=== PATIENT | female | born 1995 | race Caucasian/White ===

== ENCOUNTER 2017-10-12 11:10 | Emergency (ER) | payer MEDICAID, OTHER ==
[2017-10-13 04:12] LABS: ABSOLUTE LYMPHOCYTES (AUTO) 1.4 10^3/uL (0.5-4.7); ABSOLUTE MONOCYTES (AUTO) 0.6 10^3/uL (0.1-1.4); ABSOLUTE NEUT (AUTO) 4.9 10^3/uL (1.7-8.2); BASOPHILS % (AUTO) 0.4 % (0-2); EOSINOPHILS % (AUTO) 0.2 % (0-6); HEMATOCRIT 43.7 % (36.0-47.0); HEMOGLOBIN 14.4 g/dL (12.0-15.5); LYMPHOCYTES % (AUTO) 20.7 % (13-45); MEAN CORPUSCULAR HEMOGLOBIN 27.5 pg (27.0-33.4); MEAN CORPUSCULAR VOLUME 83 fl (80-97); MONOCYTES % (AUTO) 8.4 % (3-13); PLATELET COUNT 260 10^3/uL (150-450); RED BLOOD COUNT 5.24 10^6/uL (3.72-5.28); RED CELL DISTRIBUTION WIDTH 14.2 % (11.5-14.0); SEGMENTED NEUTROPHILS % (AUTO) 70.3 % (42-78); TOTAL CELLS COUNTED % (AUTO) 100 %
[2017-10-13 04:13] LABS: AMORPHOUS SEDIMENT,URINE TRACE /HPF; APPEARANCE,URINE CLOUDY; BILIRUBIN,URINE NEGATIVE (NEGATIVE); COLOR,URINE YELLOW; GLUCOSE, URINE NEGATIVE (NEGATIVE); KETONES,URINE 80 mg/dL (NEGATIVE); LEUKOCYTE ESTERASE,URINE NEGATIVE (NEGATIVE); NITRITE,URINE NEGATIVE (NEGATIVE); PROTEIN,URINE 100 mg/dL (NEGATIVE); URINE SPECIFIC GRAVITY 1.026
--- NOTE | 2017-10-13 09:56 | RADIOLOGY REPORT (SQ) ---
EXAM DESCRIPTION: U/S ABDOMEN LIMITED W/O DOP COMPLETED DATE/TIME: 10/13/2017 12:53 am REASON FOR STUDY: RUQ PAIN COMPARISON: None. TECHNIQUE: Dynamic and static grayscale images acquired of the abdomen and recorded on PACS. Additio nal selected color Doppler and spectral images recorded. LIMITATIONS: None. FINDINGS: PANCREAS: No masses. Visualized pancreatic duct normal caliber. LIVER: No masses. Echotexture normal. LIVER VASCULATURE: Normal directional flow of the main portal vein and hepatic veins. GALLBLADDER: Echodensity along the dependent wall of gallbladder consistent with gallstones. No thic kening of gallbladder wall. No pericholecystic fluid collection. ULTRASOUND-DETECTED LOVE'S SIGN: Negative. INTRAHEPATIC DUCTS AND COMMON DUCT: CBD and intrahepatic ducts normal caliber. No filling defects. INFERIOR VENA CAVA: Normal flow. AORTA: No aneurysm. RIGHT KIDNEY: Normal size. Normal echogenicity. No solid or suspicious masses. No hydronephrosis. No calcifications. PERITONEAL AND RIGHT PLEURAL SPACE: No ascites or effusions. OTHER: No other significant finding. IMPRESSION: GALLSTONES. OTHERWISE NORMAL RIGHT UPPER QUADRANT ULTRASOUND. TECHNICAL DOCUMENTATION: JOB ID: [id number] [employer]- All Rights Reserved
[2017-10-13 12:13] LABS: CALCIUM 9.9 mg/dL (8.4-10.2); GLUCOSE 79 mg/dL (75-110)
[2017-10-13 12:14] LABS: ALBUMIN 4.9 g/dL (3.5-5.0); ANION GAP 16 (5-19); BLOOD UREA NITROGEN 14 mg/dL (7-20); CARBON DIOXIDE 26 mmol/L (22-30); CHLORIDE 102 mmol/L (98-107); POTASSIUM 3.9 mmol/L (3.6-5.0); SODIUM 143.8 mmol/L (137-145)
[2017-10-13 12:15] LABS: ALANINE AMINOTRANSFERASE 21 U/L (9-52); ALKALINE PHOSPHATASE 116 U/L (38-126); ASPARTATE AMINO TRANSFERASE 21 U/L (14-36); BILIRUBIN,DIRECT 0.3 mg/dL (0.0-0.4); BILIRUBIN,TOTAL 0.5 mg/dL (0.2-1.3)
[2017-10-13 12:16] LABS: TOTAL PROTEIN 8.1 g/dL (6.3-8.2)
== END 2017-10-12 15:25 | disposition home or self-care (01) ==
LOC: ER 11:10
DX: K80.20 Calculus of gallbladder without cholecystitis without obstruction (principal); N76.0 Acute vaginitis; B96.89 Other specified bacterial agents as the cause of diseases classified elsewhere
CPT/HCPCS: 36415; 76705; 80053; 81001; 85025; 99284

== ENCOUNTER 2018-06-10 11:50 | Emergency (ER) | payer OTHER ==
[2018-06-10 11:55] VITALS: BP 113/74
--- NOTE | 2018-06-10 13:01 | ER Document Report ---
ED General - General Chief Complaint: Abdominal Pain Stated Complaint: ABDOMINAL PAIN Time Seen by Provider: 06/10/18 12:40 TRAVEL OUTSIDE OF THE [place] IN LAST 30 DAYS: No - HPI Patient complains to provider of: Abdominal pain Notes: Patient coming in for ongoing abdominal pain nausea vomiting and diarrhea. Patient also states having early satiety. Patient states she notices that whenever she eats she will quickly have frequent bowel movements. Patient also states abdominal pain crampy with eating. Patient has a history of cholecystectomy approximately a year ago. Patient knows also that her stool is foamy since that time. Patient states she has followed up with multiple providers however has yet to follow-up with her GI specialist never has had an EGD or colonoscopy. Patient states IBS and IBD does run into her family. Patient denies any fevers or chills. Denies any trouble with urination. Patient is with her 2 children holding the youngest without difficulty upon my evaluation patient also points to the palpable area of her stomach states that she has had a mass there for quite some time that comes and goes. Patient states she has never been evaluated for this. - Related Data Allergies/Adverse Reactions: Sulfa (Sulfonamide Antibiotics) Allergy (Verified 06/10/18 11:51) Past Medical History - Social History Smoking Status: Unknown if Ever Smoked Frequency of alcohol use: None Drug Abuse: None Family History: Reviewed & Not Pertinent Patient has suicidal ideation: No Patient has homicidal ideation: No Renal/ Medical History: Denies: Hx Peritoneal Dialysis Past Surgical History: Reports: Hx Cholecystectomy, Hx Tonsillectomy - Immunizations Immunizations up to date: Yes Hx Diphtheria, Pertussis, Tetanus Vaccination: Yes Review of Systems - Review of Systems Constitutional: No symptoms reported EENT: No symptoms reported Cardiovascular: No symptoms reported Respiratory: No symptoms reported Gastrointestinal: Abdominal pain, Diarrhea, Nausea, Vomiting Genitourinary: No symptoms reported Female Genitourinary: No symptoms reported Musculoskeletal: No symptoms reported Skin: No symptoms reported Hematologic/Lymphatic: No symptoms reported Neurological/Psychological: No symptoms reported -: Yes All other systems reviewed and negative Physical Exam - Vital signs Vitals: Temp Pulse Resp BP Pulse Ox 98.1 F 100 14 113/74 100 06/10/18 11:53 06/10/18 11:53 06/10/18 11:53 06/10/18 11:53 06/10/18 11:53 Interpretation: Normal - General General appearance: Appears well, Alert - HEENT Head: Normocephalic, Atraumatic Eyes: Normal Pupils: PERRL - Respiratory Respiratory status: No respiratory distress Chest status: Nontender Breath sounds: Normal Chest palpation: Normal - Cardiovascular Rhythm: Regular Heart sounds: Normal auscultation Murmur: No - Abdominal Inspection: Normal, Other - Patient is able to find an area that she concerned about for possible mass in the mid abdomen on the right. Unable to palpate this and does seem to be very soft freely mobile and does go away during examination patient is very thin this is thought to be possible colonic spasm or stool in the colon that the mass does resolve with palpation Distension: No distension Bowel sounds: Normal Tenderness: Nontender Organomegaly: No organomegaly - Back Back: Normal, Nontender - Extremities General upper extremity: Normal inspection, Nontender, Normal color, Normal ROM , Normal temperature General lower extremity: Normal inspection, Nontender, Normal color, Normal ROM , Normal temperature, Normal weight bearing. No: Ruby's sign - Neurological Neuro grossly intact: Yes Cognition: Normal Orientation: AAOx4 [place] Coma Scale Eye Opening: Spontaneous [place] Coma Scale Verbal: Oriented [place] Coma Scale Motor: Obeys Commands [place] Coma Scale Total: 15 Speech: Normal Motor strength normal: LUE, RUE, LLE, RLE Sensory: Normal - Psychological Associated symptoms: Normal affect, Normal mood - Skin Skin Temperature: Warm Skin Moisture: Dry Skin Color: Normal Course - Re-evaluation Re-evalutation: 06/10/18 20:48 Patient's abdominal examination is benign no surgical pathology. Patient with no fevers no chills I doubt any infectious pathology at this time. Patient otherwise does look to be very healthy. I did explain to the patient her symptoms are possibly concerning for underlying IBD or IBS at this time the patient looks stable would recommend treatment with omeprazole Reglan and Bentyl for pain I also would recommend patient follow-up with her primary care for referral to the pest control operator for EGD and colonoscopy. I did give dietary recommendations as well. Patient states understanding of these recommendations agree with this plan patient will be discharged home states that she will follow-up. - Vital Signs Vital signs: Temp Pulse Resp BP Pulse Ox 98.1 F 100 14 113/74 100 06/10/18 11:53 06/10/18 11:53 06/10/18 11:53 06/10/18 11:53 06/10/18 11:53 Discharge - Discharge Clinical Impression: Early satiety Abdominal pain Qualifiers: Abdominal location: generalized Qualified Code(s): R10.84 - Generalized abdominal pain Condition: Good Disposition: HOME, SELF-CARE Instructions: Abdominal Pain ([facility]), Irritable Bowel Syndrome ([facility]), Nausea or Vomiting, Nonspecific ([facility]) Additional Instructions: Your physical exam today revealed no signs of surgical pathology causing her pain. By her history do believe he may have underlying this IBS or IBD. The diagnosis of these will require you seeing a GI specialist to more likely perform scopes and upper GI and lower GI scope. We will start treating possible underlying gastritis with a medication called omeprazole. We also help out with your stomach cramps and nausea with a medication called Bentyl Reglan for nausea. Please follow-up with your primary care physician. I would recommend Eating or using Ensure protein drinks or boost protein drinks as that they are easily digestible may help out with some your symptoms. Return to ER for any concerning issues. Prescriptions: Dicyclomine HCl [Bentyl 20 mg Tablet] 20 mg PO QID #30 tablet Metoclopramide HCl [Reglan] 5 mg PO Q6 #30 tablet Omeprazole 20 mg PO DAILY #30 capsule.dr Forms: Return to Work Referrals: NEENA MONTENEGRO FNP-C [Primary Care Provider] - Follow up as needed JOE ZAMBRANO MD [ACTIVE STAFF] - Follow up as needed ANALI LEMON MD [ACTIVE STAFF] - Follow up as needed
== END 2018-06-10 13:03 | disposition home or self-care (01) ==
LOC: ER 11:50
DX: R10.84 Generalized abdominal pain (principal); R68.81 Early satiety; R11.2 Nausea with vomiting, unspecified
CPT/HCPCS: 99284

== ENCOUNTER 2018-08-11 10:36 | Emergency (ER) | payer OTHER ==
[2018-08-11 11:04] VITALS: BP 122/75
--- NOTE | 2018-08-11 11:28 | ER Document Report ---
HPI - HPI Patient complains to provider of: Back lesion Onset: Other - Several days Pain Level: 5 Context: 23-year-old female has a lesion on her central mid thoracic back and she wants to make sure it is not an abscess or MRSA. Her daughter has something similar on her right elbow. No fever or chills. No history of MRSA. Associated Symptoms: None Exacerbated by: Denies Relieved by: Denies - ROS ROS below otherwise negative: Yes Systems Reviewed and Negative: Yes All other systems reviewed and negative - REPRODUCTIVE Reproductive: DENIES: : Past Medical History - General Information source: Patient - Social History Smoking Status: Never Smoker Lives with: Family Family History: Reviewed & Not Pertinent - Medical History Medical History: Negative Renal/ Medical History: Denies: Hx Peritoneal Dialysis Past Surgical History: Reports: Hx Cholecystectomy, Hx Tonsillectomy - Immunizations Immunizations up to date: Yes Hx Diphtheria, Pertussis, Tetanus Vaccination: Yes Vertical Provider Document - CONSTITUTIONAL Agree With Documented VS: Yes Exam Limitations: No Limitations - INFECTION CONTROL TRAVEL OUTSIDE OF THE [place] IN LAST 30 DAYS: No - MUSCULOSKELETAL/EXTREMETIES Musculoskeletal/Extremeties: RADHA, FROM - NEURO Level of Consciousness: Alert - DERM Notes: superficial healing abrasion over mid t spinous process, not infected. Course - Vital Signs Vital signs: Temp Pulse Resp BP Pulse Ox 98.5 F 87 14 122/75 95 08/11/18 11:01 08/11/18 11:01 08/11/18 11:01 08/11/18 11:01 08/11/18 11:01 Discharge - Discharge Clinical Impression: Thoracic spine abrasion Condition: Good Disposition: HOME, SELF-CARE Instructions: Abrasions ([facility]) Additional Instructions: See your doctor for any concerns Watch the area to make sure it does not become infected Bacitracin daily Forms: Parent Work Note Referrals: NEENA MONTENEGRO, YUDIC [COMMUNITY BASED STAFF] - Follow up as needed
== END 2018-08-11 12:16 | disposition home or self-care (01) ==
LOC: ER 10:36
DX: S20.419A Abrasion of unspecified back wall of thorax, initial encounter (principal); X58.XXXA Exposure to other specified factors, initial encounter
CPT/HCPCS: 99282

== ENCOUNTER 2020-05-07 23:44 | Emergency (ER) | payer SELFPAY ==
[2020-05-08 00:47] LABS: ABSOLUTE LYMPHOCYTES (AUTO) 2.2 10^3/uL (0.5-4.7); ABSOLUTE MONOCYTES (AUTO) 0.7 10^3/uL (0.1-1.4); ABSOLUTE NEUT (AUTO) 5.1 10^3/uL (1.7-8.2); BASOPHILS % (AUTO) 0.3 % (0-2); EOSINOPHILS % (AUTO) 0.6 % (0-6); HEMATOCRIT 40.8 % (36.0-47.0); HEMOGLOBIN 13.7 g/dL (12.0-15.5); LYMPHOCYTES % (AUTO) 27.4 % (13-45); MEAN CORPUSCULAR HGB CONC 33.5 g/dL (32.0-36.0); MEAN CORPUSCULAR VOLUME 87 fl (80-97); MONOCYTES % (AUTO) 8.8 % (3-13); PLATELET COUNT 228 10^3/uL (150-450); RED BLOOD COUNT 4.71 10^6/uL (3.72-5.28); RED CELL DISTRIBUTION WIDTH 13.7 % (11.5-14.0); SEGMENTED NEUTROPHILS % (AUTO) 62.9 % (42-78); TOTAL CELLS COUNTED % (AUTO) 100 %; WHITE BLOOD COUNT 8.1 10^3/uL (4.0-10.5)
[2020-05-08 01:01] LABS: ALBUMIN 4.5 g/dL (3.5-5.0); ALKALINE PHOSPHATASE 52 U/L (38-126); ANION GAP 7 (5-19); ASPARTATE AMINO TRANSFERASE 21 U/L (14-36); BILIRUBIN,TOTAL 0.6 mg/dL (0.2-1.3); BLOOD UREA NITROGEN 6 mg/dL (7-20); CALCIUM 9.6 mg/dL (8.4-10.2); CARBON DIOXIDE 27 mmol/L (22-30); CHLORIDE 104 mmol/L (98-107); GLUCOSE 93 mg/dL (75-110); POTASSIUM 4.3 mmol/L (3.6-5.0); TOTAL PROTEIN 7.6 g/dL (6.3-8.2)
[2020-05-08 02:22] LABS: AMORPHOUS SEDIMENT,URINE TRACE /HPF; APPEARANCE,URINE CLOUDY; BILIRUBIN,URINE NEGATIVE (NEGATIVE); COLOR,URINE YELLOW; GLUCOSE, URINE NEGATIVE (NEGATIVE); KETONES,URINE NEGATIVE (NEGATIVE); LEUKOCYTE ESTERASE,URINE NEGATIVE (NEGATIVE); NITRITE,URINE NEGATIVE (NEGATIVE); PROTEIN,URINE NEGATIVE (NEGATIVE); URINE SPECIFIC GRAVITY 1.011; UROBILINOGEN,URINE NEGATIVE mg/dL (<2.0)
[2020-05-08] MEDS ORDERED: NORMAL SALINE 1000 ML 1,000 ML IV ONE (04:34)
[2020-05-08] MEDS ORDERED: KETOROLAC TROMETHAMINE INJ/PF 30 MG/1 ML SDV IV ONE (04:34)
[2020-05-08] MEDS ORDERED: ONDANSETRON HCL INJ/PF 4 MG/2 ML SDV IV ONE (04:35)
--- NOTE | 2020-05-08 04:36 | ER Document Report ---
Entered by TAVON VELIZ SCRIBE 05/08/20 0428 Acting as scribe for:PETTY HEAD IV, MD ED GI/ - General Mode of Arrival: Ambulatory Information source: Patient TRAVEL OUTSIDE OF THE [place] IN LAST 30 DAYS: No - Related Data Home Medications: Omeprazole <PETTY HEAD IV - Last Filed: 05/08/20 04:36> <PARIS FUENTES - Last Filed: 05/08/20 09:59> - General Chief Complaint: Lower Abdominal Pain Stated Complaint: LOWER RIGHT ABDOMINAL PAIN Time Seen by Provider: 05/08/20 04:13 Notes: This 24 year old female patient presents to the ED today with complaints of RLQ abdominal pain that started around 1830 yesterday evening. Patient states the pain was initially dull and localized to her periumbilical region, but has now radiated to her RLQ and right lower back. Pain is now constant and sharp. She also reports associated nausea and poor appetite for the last x1.5 days, which is not uncommon for her she states. No vomiting or fever. Patient had a chol ecystectomy in November 2017. (PETTY HEAD IV) - Related Data Allergies/Adverse Reactions: Sulfa (Sulfonamide Antibiotics) Allergy (Verified 07/13/19 14:22) Past Medical History - General Information source: Patient - Social History Smoking Status: Never Smoker Cigarette use (# per day): No Chew tobacco use (# tins/day): No Smoking Education Provided: No Frequency of alcohol use: Social Drug Abuse: None Family History: Reviewed & Not Pertinent Patient has suicidal ideation: No Patient has homicidal ideation: No Past Surgical History: Reports: Hx Cholecystectomy, Hx Tonsillectomy - Immunizations Immunizations up to date: Yes Hx Diphtheria, Pertussis, Tetanus Vaccination: Yes <PETTY HEAD IV - Last Filed: 05/08/20 04:36> Review of Systems - Review of Systems Constitutional: See HPI. denies: Fever EENT: No symptoms reported Cardiovascular: No symptoms reported Respiratory: No symptoms reported Gastrointestinal: See HPI, Abdominal pain, Nausea, Poor appetite. denies: Vomiting Genitourinary: No symptoms reported Female Genitourinary: No symptoms reported Musculoskeletal: No symptoms reported Skin: No symptoms reported Hematologic/Lymphatic: No symptoms reported Neurological/Psychological: No symptoms reported -: Yes All other systems reviewed and negative <PETTY HEAD IV - Last Filed: 05/08/20 04:36> Physical Exam - Vital signs Interpretation: Normal - General General appearance: Alert In distress: None - HEENT Head: Normocephalic, Atraumatic Eyes: Normal Pupils: PERRL - Respiratory Respiratory status: No respiratory distress Chest status: Nontender Breath sounds: Normal Chest palpation: Normal - Cardiovascular Rhythm: Regular Heart sounds: Normal auscultation Murmur: No Friction rub: No Gallop: None auscultated - Abdominal Inspection: Normal Distension: No distension Bowel sounds: Normal Tenderness: McBurney's point, Rebound - mild, Other - Abdomen soft Organomegaly: No organomegaly - Back Back: Normal, Nontender - Extremities General upper extremity: Normal inspection General lower extremity: Normal inspection - Neurological Neuro grossly intact: Yes Orientation: AAOx4 [place] Coma Scale Eye Opening: Spontaneous [place] Coma Scale Verbal: Oriented [place] Coma Scale Motor: Obeys Commands [place] Coma Scale Total: 15 - Psychological Associated symptoms: Normal affect, Normal mood - Skin Skin Temperature: Warm Skin Moisture: Dry Skin Color: Normal <PETTY HEAD IV - Last Filed: 05/08/20 04:36> - Vital signs Vitals: Temp Pulse Resp BP Pulse Ox 98.4 F 80 18 113/75 100 05/08/20 00:05 05/08/20 00:05 05/08/20 00:05 05/08/20 00:05 05/08/20 00:05 Course - Laboratory Result Diagrams: 05/08/20 00:32 05/08/20 00:32 <PETYT HEAD IV - Last Filed: 05/08/20 04:36> - Laboratory Result Diagrams: 05/08/20 00:32 05/08/20 00:32 <PARIS FUENTES - Last Filed: 05/08/20 09:59> - Vital Signs Vital signs: Temp Pulse Resp BP Pulse Ox 98.4 F 73 18 120/68 100 05/08/20 06:57 05/08/20 06:57 05/08/20 06:57 05/08/20 06:57 05/08/20 06:57 - Laboratory Laboratory results interpreted by wi: 05/08/20 00:32 BUN 6 L Creatinine 0.50 L Discharge <PETTY HEAD IV - Last Filed: 05/08/20 04:36> <PARIS FUENTES - Last Filed: 05/08/20 09:59> - Discharge Clinical Impression: Right lower quadrant abdominal pain, Pelvic pain Condition: Stable Disposition: HOME, SELF-CARE Additional Instructions: Pelvic Pain There are many causes of pain in the pelvic area. The cause could be the tubes, ovaries, uterus, intestines, appendix, pelvic muscles and connective tissue, or the urinary tract. The cause of your pelvic pain is not clear. However, it seems safe to treat you outside the hospital. If the pain sounds like a temporary problem, we sometimes wait to see if it goes away. Other patients may need additional tests, such as pelvic ultrasound or cultures. Conditions may change. Call us or come back for reexamination if any problems occur, such as: (1) Pain that becomes more severe, steady, or becomes concentrated in one specific area. Also, pain that is more severe with movement or coughing. (2) Vomiting that persists or becomes more frequent. (3) Blood in the vomitus, urine, or bowel movements. Blood in the stool may have a tarry or black appearance. (4) Shaking chills or fever greater than 100 degrees. (5) The abdomen becomes more distended or swollen. (6) Bowel movements cease. (7) Heavy vaginal bleeding. Take the medications as prescribed. Take Tylenol every 4-6 hours and ibuprofen 600 mg every 8 hours for the next few days for the pelvic discomfort. Follow-up with your primary care provider if not improving. RETURN TO THE EMERGENCY ROOM IF ANY NEW OR WORSENING SYMPTOMS. Prescriptions: Doxycycline Hyclate 100 mg PO BID #20 tablet.dr Alvarez personally performed the services described in the documentation, reviewed and edited the documentation which was dictated to the scribe in my presence, and it accurately records my words and actions.
--- NOTE | 2020-05-08 07:44 | RADIOLOGY REPORT (SQ) ---
CT abdomen and pelvis with contrast on 05/08/2020 at 7:17 AM CLINICAL INDICATION: Right lower quadrant pain TECHNIQUE: Multiple axial images are obtained throughout the abdomen and pelvis following the administration of IV and oral contrast. This exam was performed according to our departmental dose-optimization program, which includes automated exposure control, adjustment of the mA and/or kV according to patient size and/or use of iterative reconstruction technique. Total DLP is 504.92 mGy*cm. COMPARISON: None FINDINGS: Abdomen: The lung bases are clear. The patient is status post cholecystectomy. The solid abdominal organs are unremarkable. There is no abdominal adenopathy. There is no free fluid or free air within the abdomen. The abdominal portion of the GI tract is unremarkable. Pelvis: Small amount of free fluid in the pelvis is likely physiologic. Pelvic organs appear unremarkable by CT. There is no pelvic adenopathy. Pelvic portion of the GI tract including the appendix is unremarkable. No bony abnormality is noted. IMPRESSION: No acute abnormality.
--- NOTE | 2020-05-08 10:04 | ER Document Report ---
Doctor's Note Notes: 05/08/20 10:02 Patient care was turned over to me at shift change. Patient was waiting for a CT scan at that time. CT scan has come back and is unremarkable, showing only physiologic pelvic free fluid. I went and spoke with the patient, she had onset yesterday evening of sharp stabbing umbilical pain which then traveled to the right lower quadrant. She states her discharge is no different than normal. Physical exam at this time shows abdomen soft, active bowel sounds, very tender in the left lower quadrant, very tender in the suprapubic region, and tender in the right lower quadrant. Physical exam is most consistent with PID. Explained this to the patient, will get a dirty catch urine for GC chlamydia, and discharged on doxycycline.
[2020-05-08 10:38] VITALS: BP 102/59
[2020-05-08 12:05] LABS: CHLAM PCR NOT DETECTED (NOT DETECT)
== END 2020-05-08 10:39 | disposition home or self-care (01) ==
LOC: ER 23:44
DX: R10.31 Right lower quadrant pain (principal); R10.2 Pelvic and perineal pain; R10.814 Left lower quadrant abdominal tenderness; R10.813 Right lower quadrant abdominal tenderness; R11.0 Nausea; R63.0 Anorexia; Z90.49 Acquired absence of other specified parts of digestive tract; Z88.2 Allergy status to sulfonamides
CPT/HCPCS: 99284; 96361; 96374; 96375; 36415; 83690; 85025; 81025; 80053; 81001; 87491; 87591; 74177; J1885; J2405; J7030